=== PATIENT | male | born 1945 | race Caucasian/White ===

== ENCOUNTER 2023-11-07 18:37 | Observation (INO) | payer MEDICARE, SELFPAY ==
[2023-11-07] VITALS (14 sets, daily range): BP systolic 94–148; BP diastolic 72–85; PULSE 64; O2SAT 98; BMI 24.5; BMI 24.1
--- NOTE | 2023-11-07 10:01 | EDRN ---
Eriberto VALENTIN in w/ pt at this time.
--- NOTE | 2023-11-07 10:14 | ED.GENMED ---
History of Present Illness
<Sharyn Cordova PA-C - Last Filed: 11/07/23 17:48>
General
Chief Complaint: Fall
Source: patient and family
Time Seen by Provider: 11/07/23 09:55
History of Present Illness
History of Present Illness:
77yoM with a history of hypertension and hyperlipidemia presenting with his daughter for evaluation of a fall. Patient does not remember the fall but it occurred sometime last night. The patient believes he was sleep walking when he fell. The fall
was unwitnessed by family. Daughter states he accidentally took 2 pills of zolpidem last night instead of his usual 1. Patient woke up this morning in his bed with R periorbital ecchymosis. He also c/o R scapular and flank pain.
Patient is from [place] and his house was recently condemned. He moved in with his daughter about 1.5 weeks ago and is currently staying in her downstairs bedroom. Patient's daughter is a night court magistrate nurse. He has fallen 2x since moving in with his
daughter. Daughter is requesting case management consult for placement. He has no documented history of dementia although daughter has noticed some memory issues.
Phy Exam
<Sharyn Cordova PA-C - Last Filed: 11/07/23 17:48>
General Physical Exam
General Presentation: well appearing
General age: appears stated age
General Skin: warm and dry
General Habitus: elderly
General Mental: alert
ENT Exam
ENT Exam: other (R periorbital ecchymosis and tenderness present. No step-offs noted. Approx 3cm curved laceration underneath R eyebrow. PERRL. EOMs intact. Conjunctiva clear. )
Eye Exam
Eye Exam: PERRL, EOMI and conjunctiva normal
Cardiovascular Exam
Cardiovascular Exam: regular rate/rhythm and no edema
Pulmonary Exam
Pulmonary Exam: lungs clear, no respiratory distress, no crackles, no wheezing and other (Bilateral breath sounds)
Gastrointestinal Exam
Gastrointestinal Exam: non tender, soft and non distended
[place] Coma Scale
Eye Opening: Spontaneous
Verbal Response: Oriented
Motor Response: Obeys Commands
GCS Total Score: 15
Musculoskeletal Exam
Musculoskeletal Exam: other (+Tenderness in R upper back/scapular area. Small abrasions noted. No C/T/L spine tenderness. ROM of R shoulder normal. )
Skin Exam
Skin Exam: normal color and warm/dry
<Obie Brown MD - Last Filed: 11/07/23 16:14>
Jaleel Coma Scale
GCS Total Score: 15
Course
<Sharyn Cordova PA-C - Last Filed: 11/07/23 17:48>
Orders/Labs/Results
Orders:
Orders
11/07/23 10:12
Electrocardiogram (*1) Urgent
Reason for Study: Other
Other Reason for Exam: Unwitnessed fall
CT Cervical Spine W/o Iv Contr Urgent
Comment:
Reason For Exam: Unwitnessed fall
CT Chest/abd/pel W Iv Cont Urgent
Comment:
Reason For Exam: Unwitnessed fall, R upper back/flank pain
CT Facial Bones W/o Iv Contras Urgent
Comment:
Reason For Exam: R periorbital ecchymosis, fall
CT Head W/o Iv Contrast Urgent
Comment:
Reason For Exam: Unwitnessed fall
EKG- Treatment ONCE
Tetanus/Diphth/Acelpertussis [Adacel] 0.5 ml IM .ONCE ONE
11/07/23 10:29
Complete Blood Count/With Diff Urgent
Comprehensive Metabolic Panel Urgent
PTT Urgent
Prothrombin Time Urgent
Total CK [Creatine Phosphokinase] Urgent
Troponin I Urgent
11/07/23 12:46
Case Management Consult ONCE
Case Management Consult: Discharge Planning
11/07/23 13:03
Pt Eval And Treat Urgent
Activity Level: Out of Bed- Ad Bhumika
11/07/23 14:03
Ketorolac [Toradol] 15 mg IV NOW STA
11/07/23 16:07
Ketorolac [Toradol] 15 mg .ROUTE .STK-MED ONE
Abnormal Lab Results
11/07/23
10:29
WBC 12.9 H 10^3/uL
(4.8-10.8)
Abs Immat Gran (auto) 0.1 H 10^3/uL
(0-0.05)
Absolute Neuts (auto) 10.8 H 10^3/uL
(1.4-6.5)
Absolute Lymphs (auto) 1.0 L 10^3/uL
(1.2-3.4)
Absolute Monos (auto) 1.0 H 10^3/uL
(0.1-0.6)
Neutrophils % 83.6 H %
(42.2-75.2)
Lymphocytes % 8.0 L %
(20.5-51.1)
BUN 21 H mg/dl
(9-20)
11/07/23 10:29
11/07/23 10:29
Vital Signs
Initial and Last Documented VS:
Initial Vital Signs
Temp Pulse Resp BP Pulse Ox
97.8 F 65 16 142/85 98
11/07/23 08:48 11/07/23 08:48 11/07/23 08:48 11/07/23 08:48 11/07/23 08:48
Last Documented Vital Signs
Temp Pulse Resp BP Pulse Ox
97.8 F 71 17 103/76 95
11/07/23 08:48 11/07/23 17:15 11/07/23 17:15 11/07/23 17:00 11/07/23 17:15
<Obie Brown MD - Last Filed: 11/07/23 16:14>
Orders/Labs/Results
Orders:
Orders
11/07/23 10:12
Electrocardiogram (*1) Urgent
Reason for Study: Other
Other Reason for Exam: Unwitnessed fall
CT Cervical Spine W/o Iv Contr Urgent
Comment:
Reason For Exam: Unwitnessed fall
CT Chest/abd/pel W Iv Cont Urgent
Comment:
Reason For Exam: Unwitnessed fall, R upper back/flank pain
CT Facial Bones W/o Iv Contras Urgent
Comment:
Reason For Exam: R periorbital ecchymosis, fall
CT Head W/o Iv Contrast Urgent
Comment:
Reason For Exam: Unwitnessed fall
EKG- Treatment ONCE
Tetanus/Diphth/Acelpertussis [Adacel] 0.5 ml IM .ONCE ONE
11/07/23 10:29
Complete Blood Count/With Diff Urgent
Comprehensive Metabolic Panel Urgent
PTT Urgent
Prothrombin Time Urgent
Total CK [Creatine Phosphokinase] Urgent
Troponin I Urgent
11/07/23 12:46
Case Management Consult ONCE
Case Management Consult: Discharge Planning
11/07/23 13:03
Pt Eval And Treat Urgent
Activity Level: Out of Bed- Ad Bhumika
11/07/23 14:03
Ketorolac [Toradol] 15 mg IV NOW STA
11/07/23 16:07
Ketorolac [Toradol] 15 mg .ROUTE .STK-MED ONE
Abnormal Lab Results
11/07/23
10:29
WBC 12.9 H 10^3/uL
(4.8-10.8)
Abs Immat Gran (auto) 0.1 H 10^3/uL
(0-0.05)
Absolute Neuts (auto) 10.8 H 10^3/uL
(1.4-6.5)
Absolute Lymphs (auto) 1.0 L 10^3/uL
(1.2-3.4)
Absolute Monos (auto) 1.0 H 10^3/uL
(0.1-0.6)
Neutrophils % 83.6 H %
(42.2-75.2)
Lymphocytes % 8.0 L %
(20.5-51.1)
BUN 21 H mg/dl
(9-20)
11/07/23 10:29
11/07/23 10:29
Vital Signs
Initial and Last Documented VS:
Initial Vital Signs
Temp Pulse Resp BP Pulse Ox
97.8 F 65 16 142/85 98
11/07/23 08:48 11/07/23 08:48 11/07/23 08:48 11/07/23 08:48 11/07/23 08:48
Last Documented Vital Signs
Temp Pulse Resp BP Pulse Ox
97.8 F 71 17 103/76 95
11/07/23 08:48 11/07/23 17:15 11/07/23 17:15 11/07/23 17:00 11/07/23 17:15
Procedures
<Sharyn Cordova PA-C - Last Filed: 11/07/23 17:48>
Laceration Closure
Right Eye:
Status of Wound: clean
Size of Wound in cm: 3
Description of Wound Edges: sharp
Preparation: cleaned with saline
Anesthesia: 1% Lidocaine with epi
Wound exploration: explored to base- no FB
Type of Closure: single layer closure and interrupted sutures
Skin Closure Material: 5-0 nylon
Number of sutures: 5
<Sharyn Cordova PA-C - Last Filed: 11/07/23 17:48>
MDM/Problems Addressed
Differential Diagnosis Includes:
77yoM here after an unwitnessed fall last night. Woke up with R periorbital ecchymosis and R upper back pain. Hx of memory issues and recently moved in with daughter. Daughter also would like a case management consult. He is afebrile and
hemodynamically stable. He is awake, alert, with a GCS of 15. Differential diagnosis includes but is not limited to: mechanical fall, syncope, intracranial hemorrhage, fracture, failure to thrive
Initial ED plan: Check cardiac labs, CK, EKG, and stuart scan to evaluate for traumatic injuries. Update Tdap. Repair eyebrow laceration.
<Sharyn Cordova PA-C - Last Filed: 11/07/23 17:48>
*EKG
Interpreted by ED Provider?: Yes
EKG Intrepretation Date: 11/07/23
Heart Rate: 56
Rate: normal
Rhythm: sinus
Cascade: normal axis
Interval: normal interval
QRS Pattern: normal QRS
Ischemia: no ischemia
*Critical Care Note
Total Time (30-74mins, 75-104mins- exclusive of procedures): Not Applicable
<Sharyn Cordova PA-C - Last Filed: 11/07/23 17:48>
Update Note
Update Note:
Imaging reveals 3 mildly displaced rib fractures. No hemo or pneumothorax. No other injury seen on imaging. Eyebrow laceration repaired as above. Attempted to admit patient to hospital service due to multiple rib fractures in the setting of age
and probable dementia. Hospitalist initially was refusing to admit patient. Case management consulted for placement. Patient unable to be placed in a short-term rehab today. He was ultimately admitted for further management.
ED Attending Note
<Sharyn Cordova PA-C - Last Filed: 11/07/23 17:48>
-
Portions of this chart may have been created with voice recognition software.� Occasional wrong word or��sound alike� substitutions may have occurred due to the inherent limitations of voice recognition software.
<Obie Brown MD - Last Filed: 11/07/23 16:14>
ED Attending Note
Patient seen and examined by attending physician: Yes
ED Attending Note:
I have seen and evaluated the patient with a [id number] encounter. I have spoken to the advance practicer provider and involved in the medical history, the physical exam, medical decision making.
Evaluation and management service: agree unless noted differently below.
Results interpretation: agree unless noted differently below.
Focused HPI: 77-year-old male with past medical history of hypertension, dementia presents to the emergency room accompanied by his son-in-law for evaluation of right back/shoulder pain after an apparent fall. Patient has poor recall due to mild
dementia. He is currently living at home with his daughter and son-in-law�son-in-law states that patient has ambulatory issues and that they have stairs in the house and so patient has been living in the living room to avoid need for stairs.
Apparently this morning patient was found to have bruising and dried blood on the face and was complaining of right shoulder blade pain. Unclear exactly when the fall occurred but apparently appeared normal last night. He is not on any blood
thinners. He denies any headache or neck pain at present. Denies any abdominal pain. He denies any pain in his extremities. Unsure of last tetanus.
Physical exam: Awake and alert. He has right periorbital edema and ecchymosis; he has laceration and above the right orbit near the eyebrow. Extraocular moods are intact, pupils equal round and reactive to light bilaterally. He has no sternal
tenderness; he has posterior rib tenderness just medial to the scapula on the right. He has no midline thoracic or lumbar tenderness. He has no cervical spine tenderness. He has a soft abdomen which is nontender to deep palpation. He has no
signs of trauma to the upper and lower extremities and allows for full passive range of motion without discomfort.
Medical Decision Makin-year-old male presents after a fall last night�main injuries to the right forehead and right mid back/scapular region. Will update tetanus. Check labs including a CBC and a CMP. Check CPK. Check an EKG. Will send for
CT head, facial bones, cervical spine, chest/abdomen/pelvis. Will treat pain. Repair laceration. Reassess after the above.
Labs reviewed: CBC shows marginal leukocytosis, no anemia. CMP no clinically significant abnormalities. CPK normal. CT of the head, face, cervical spine show no acute posttraumatic injuries. CT of the chest/abdomen/pelvis shows mildly displaced
fractures of the right third, fourth, and fifth ribs. Reassessment pain at rest controlled but with movement and inspiration patient is having significant pain. On incentive spirometry testing patient had values of 800/600/600--notably patient had
to interrupt inspiration twice during testing due to pain. Fortunately no other serious injuries aside from rib fractures. I have concerns about his current living situation�family wishes for placement in a higher level of care and I think this is
certainly necessary. Furthermore I have medical concerns given his age, frailty, poor values on incentive spirometry�poor prognostic indicators and certainly with multiple displaced rib fractures there is higher morbidity and mortality. I do think
that admission to the hospital is indicated for analgesia and pulmonary hygiene/incentive spirometry as well as monitoring of respiratory status.
I had a long discussion with the admitting hospitalist expressed concerns about morbidity and mortality in this patient. Expressed my assessment that patient requires admission to the hospital. Expressed my understanding that standard of care for
multiple displaced rib fractures in a patient with above findings is admission to the hospital. After this discussion the hospitalist still does not feel that admission to the hospital is indicated and is refusing admission. Instead he requested
that rn case manager hospice attempt to place patient in jail from the emergency room. Only if unable to place in jail will admit to the hospital. Will continue to monitor the emergency room for now.
Discharge Plan
Departure
Patient Disposition: Admit
Date of Disposition: 11/07/23
Time of Disposition: 17:04
Presentation/result/management discussed w/ accepting MD/DO: Hospitalist
Discharge Problem:
Multiple closed fractures of ribs of right side, Laceration of right eyebrow, Frequent falls
Prescriptions:
No Action
No Current Medications
0
Referrals:
PRIVATE,PHYSICIAN [Family Provider] -
Interventions
Interventions:
*Risk Screen - Suicide Last Done: 11/07/23 08:48
*General Assessment Last Done: 11/07/23 08:48
*Neglect/Abuse Screening Last Done: 11/07/23 08:48
ED- Fall Risk Assessment Last Done: 11/07/23 11:40
*ED COVID-19 Vaccine History Last Done: 11/07/23 10:16
ED-Musculoskeletal Assessment Last Done: 11/07/23 10:43
ED- Neurological Assessment Last Done: 11/07/23 10:16
ED-Skin Assessment Last Done: 11/07/23 10:43
Discharge Date and Time
Print Language: SYRIAC
[2023-11-07 10:40] LABS: % Basophils 0.3 % (0-2); % Eosinophils 0.2 % (0-6); % Immature Granulocytes 0.5 % (0-0.5); % Monocytes 7.4 % (1.7-9.3); % Neutrophils 83.6 % (42.2-75.2); Absolute Immature Granulocytes 0.1 10^3/uL (0-0.05); Absolute Neutrophils 10.8 10^3/uL (1.4-6.5); Hematocrit 43.3 % (39.0-52.0); Hemoglobin 14.5 g/dL (13.0-18.0); Mean Corp Hgb Conc. 33.5 g/dL (33.0-37.0); Mean Corpuscular Hgb 30.8 pg (27.0-31.0); Mean Corpuscular Volume 91.9 fL (80.0-94.0); Mean Platelet Volume 8.5 fL (7.4-10.4); Nucleated Red Blood Cells % 0 % (-); Platelet Count 319 10^3/uL (130-400); Red Blood Cell Count 4.71 10^6/uL (4.70-6.10); Red Cell Dist. Width 12.3 % (11.5-14.5); White Blood Cell Count 12.9 10^3/uL (4.8-10.8)
[2023-11-07 10:50] LABS: INR 1.02; PT 13.2 Sec (11.4-14.6)
[2023-11-07 10:51] LABS: ALT (SGPT) 18 U/L (0-50); AST (SGOT) 20 U/L (17-59); Albumin 3.7 g/dl (3.5-5.0); Alkaline Phosphatase 70 U/L (38-126); Blood Urea Nitrogen 21 mg/dl (9-20); Calcium 9.1 mg/dl (8.4-10.2); Carbon Dioxide 29 mmol/L (22-30); Chloride 102 mmol/L (98-107); Creatine Phosphokinase 65 U/L (55-170); Estimated Creatinine Clearance 73 ml/min; Glucose 98 mg/dl (70-99); Potassium 4.5 mmol/L (3.5-5.1); Sodium 136 mmol/L (135-145); Total Bilirubin 0.4 mg/dl (0.2-1.3); Total Protein 6.6 g/dl (6.3-8.2); eGFR > 60.00
[2023-11-07] MEDS: ADACEL 0.5 ML IM (10:51)
[2023-11-07 11:02] LABS: Troponin I < 0.012 ng/ml
--- NOTE | 2023-11-07 12:13 | EDRN ---
Pt remains in CT at this time.
--- NOTE | 2023-11-07 13:00 | EDRN ---
ED PCT washed wounds on face extensively w/ soap and water, rinsed areas w/ saline, and dressed areas w/ double antibiotic ointment.
--- NOTE | 2023-11-07 13:10 | CM ---
Cm was updated that patient will be admitted/placed in OBS. CM will discuss discharge planning with family.
--- NOTE | 2023-11-07 13:15 | EDRN ---
Eriberto Cordova PA in to see ptReal
--- NOTE | 2023-11-07 13:15 | EDRN ---
Yecenia from case management is presently in room w/ pt at this time.
--- NOTE | 2023-11-07 13:36 | EDRN ---
Dr. Brown in room w/ pt at this time.
--- NOTE | 2023-11-07 13:56 | EDRN ---
Pt was given IS w/ instructions and good return demo by Dr. Brown.
--- NOTE | 2023-11-07 14:21 | CM ---
Addendum entered by Yecenia Chatman RN 11/07/23 17:07:
Plan to place patient in OBS while authorization is pending.
Addendum entered by Yecenia Chatman RN 11/07/23 15:39:
Patient's family is agreeable to [facility] in [place]. Update admission coordinator.
CM initiated insurance authorization through [facility]
Pending authorization is [id number].
Son in Law Tavares is contact for further updates:
[phone]
Addendum entered by Yecenia Chatman RN 11/07/23 14:40:
CM sent referral to [facility].
Addendum entered by Yecenia Chatman RN 11/07/23 14:26:
CM sent referrals to [facility], [facility] and [facility].
Original Note:
CM spoke with patient's son in law who is in agreement with SNF. CM will send referrals. Pending PT notes and acceptance.
--- NOTE | 2023-11-07 14:22 | EDRN ---
Yecenia case reviewer was in to speak w/ pt and family at this time. She said she is going to attempt SNF placement and if not able pt will have to be admitted pending SNF placement.
--- NOTE | 2023-11-07 14:45 | EDRN ---
Pt was evaluated by Julissa from PT who said pt is unsafe to be alone at home by himself as needs assist of 1 to ambulate and needs also an assistive device. Pt was also deemed as confused not remembering what surgeries he had had on his ankles. Pt
has had prior injuries and surgeries on both his ankles per Julissa. Pt' R ankle causes pt to ambulate on lateral portion of his foot not using sole of his foot. Pt's L ankle is fixed from prior surgery and therefore has not ROM.
[2023-11-07] MEDS: TORADOL 15 MG IV (16:09)
--- NOTE | 2023-11-07 16:15 | EDRN ---
Pt ate 100% of his boxed lunch at this time. Pt doing his IS now as well.
--- NOTE | 2023-11-07 17:05 | EDRN ---
Yecenia Laser Printing Operator in ED unable to obtain SNF placement for pt at this time. Pt will be admitted. Yecenia notified Eriberto VALENTIN and will call pt's son who left.
--- NOTE | 2023-11-07 17:16 | PHANOTE ---
med rec karolyn(11/07/23)- Despite having multiple prescriptions, patient states he has not taken any of his pills for around a month. He has prescriptions for lisinopril-HCTZ 20-12.5mg Q48H, Ambien 10mg HSPRN, Lexapro 5mg QD, and Donepezil 10mg QPM.
--- NOTE | 2023-11-07 18:00 | EDRN ---
Dr. Vogel in to see pt at this time.
--- NOTE | 2023-11-07 18:03 | HPS.HSE ---
Family Physician
-
Family Physician: PHYSICIAN PRIVATE
Chief Complaint
-
fall
History of Present Illness
77-year-old male past medical history of hypertension, hyperlipidemia presenting with his daughter for evaluation of a fall. Patient does not remember the fall occurred sometime last night and was unwitnessed. Daughter states he accidentally took
2 pills of zolpidem last night instead of 1. Patient woke up this morning in his bed with right periorbital ecchymosis and right scapular/flank pain. He denies any pain at this time.
Patient is from [place] and his house was recently condemned. He moved in with his daughter 1 and a 1/2 weeks ago. He has fallen twice since moving in with daughter. Daughter requesting case management consult for placement. Patient has no
history of dementia although daughters noticed some memory issues.
Medical History
Past Medical History
Past Medical History: Reports Other (hypertension, hyperlipidemia)
Past Surgical History: Reports None
Social History
Tobacco: Non-smoker
Alcohol: None
Drug: None
Family History
Family History: Not pertinent
Allergies / Home Medications
Allergies reflects when Allergies were last updated in [facility].
Home Medications with original date entered in [facility]
Allergy/Medication List:
Allergies
Allergy/AdvReac Type Severity Reaction Status Date / Time
No Known Allergies Allergy Unverified 11/07/23 08:45
Home Medications
No Meds [No Current Medications] 11/07/23
Review of Systems
-
History Source: Patient
A 12 point ROS was completed and negative except as noted: Yes
Constitutional: Reports No Symptoms
EENT: Reports No Symptoms
Respiratory: Reports No Symptoms
Cardiac: Reports No Symptoms
Abdomen/GI: Reports No Symptoms
: Reports No Symptoms
Musculoskeletal: Reports No Symptoms
Skin: Reports No Symptoms
Neurological: Reports No Symptoms
Endocrine: Reports No Symptoms
Hematologic/Lymphatic: Reports No Symptoms
Psych: Reports No Symptoms
Physical Exam
Vital Signs
Vital Signs
Temp Pulse Resp BP Pulse Ox
97.8 F 71 17 103/76 95
11/07/23 08:48 11/07/23 17:15 11/07/23 17:15 11/07/23 17:00 11/07/23 17:15
Physical Exam
General: Well Developed, Well Nourished and No Apparent Distress
HEENT: NormoCephalic, Moist mucous membranes and Atraumatic
Respiratory: Clear
Cardiac: S1/S2 and Regular Rhythm; No Murmur or Rub
GI: Soft, Non Tender, Non Distended and Normal Bowel Sounds; No Organomegaly
Rectal: Deferred by Provider
Musculoskeletal: No Clubbing, No Cyanosis and No Edema
Skin: No Rash
Neuro: Nonfocal/grossly intact
Laboratory Results
-
11/07/23 10:29
11/07/23 10:29
Laboratory Results
PT 13.2 Sec (11.4-14.6) 11/07/23 10:29
INR 1.02 11/07/23 10:29
APTT 30.0 Sec (23.4-35.0) 11/07/23 10:29
Total Bilirubin 0.4 mg/dl (0.2-1.3) 11/07/23 10:29
AST 20 U/L (17-59) 11/07/23 10:29
ALT 18 U/L (0-50) 11/07/23 10:29
Alkaline Phosphatase 70 U/L (38-126) 11/07/23 10:29
Troponin I < 0.012 ng/ml 11/07/23 10:29
Data Reviewed
-
Lab Data: Labs Reviewed by me
Old Records: Reviewed
Impression/Plan
-
IMPRESSION:
PLAN:
# Fall secondary to increased zolpidem resulting in periorbital ecchymosis
-CT head shows moderate right periorbital soft tissue edema
-CT facial bones negative
-CT C-spine without acute abnormalities
-Case management found SNF bed but insurance authorization pending
# Fall resulting in mildly displaced fractures of right lateral third, fourth and fifth ribs
-Tylenol, lidocaine patch
Likely mild dementia/cognitive impairment
BPH
Hypertension
Hyperlipidemia
DNR/DNI
DVT prophylaxis�SCDs
Regular diet
--- NOTE | 2023-11-07 18:40 | WOUNDNOTE ---
WOUND/SKIN CARE NOTE: Pt identified by name and .
Sutured wound in R eyebrow
Bruising around R eye
R cheek abrasion
--- NOTE | 2023-11-07 18:42 | EDRN ---
Pt administered apple juice at his request at this time.
[2023-11-08 07:00] VITALS: BP 147/86
[2023-11-08 08:11] LABS: % Basophils 0.2 % (0-2); % Eosinophils 0.3 % (0-6); % Immature Granulocytes 0.3 % (0-0.5); % Monocytes 8.6 % (1.7-9.3); % Neutrophils 77.6 % (42.2-75.2); Absolute Lymphocytes 1.2 10^3/uL (1.2-3.4); Absolute Monocytes 0.8 10^3/uL (0.1-0.6); Absolute Neutrophils 7.1 10^3/uL (1.4-6.5); Hematocrit 41.9 % (39.0-52.0); Hemoglobin 14.2 g/dL (13.0-18.0); Mean Corp Hgb Conc. 33.9 g/dL (33.0-37.0); Mean Corpuscular Hgb 31.6 pg (27.0-31.0); Mean Corpuscular Volume 93.1 fL (80.0-94.0); Mean Platelet Volume 8.6 fL (7.4-10.4); Nucleated Red Blood Cells % 0 % (-); Platelet Count 257 10^3/uL (130-400); Red Cell Dist. Width 12.5 % (11.5-14.5); White Blood Cell Count 9.2 10^3/uL (4.8-10.8)
[2023-11-08 08:29] LABS: ALT (SGPT) 15 U/L (0-50); AST (SGOT) 18 U/L (17-59); Albumin 3.4 g/dl (3.5-5.0); Alkaline Phosphatase 69 U/L (38-126); Blood Urea Nitrogen 20 mg/dl (9-20); Calcium 8.9 mg/dl (8.4-10.2); Carbon Dioxide 28 mmol/L (22-30); Chloride 101 mmol/L (98-107); Estimated Creatinine Clearance 82 ml/min; Glucose 84 mg/dl (70-99); Potassium 4.1 mmol/L (3.5-5.1); Sodium 135 mmol/L (135-145); Total Bilirubin 0.5 mg/dl (0.2-1.3); Total Protein 6.2 g/dl (6.3-8.2); eGFR > 60.00
--- NOTE | 2023-11-08 09:02 | CM ---
terminal manager spoke with Nakita Weaver at [facility] [phone] and Auth is still pending. Auth [id number]
Plan; Skilled placement at [facility] in [place] when stable.
--- NOTE | 2023-11-08 10:30 | W.PN.HOSP.TC ---
Today's Communication/Plan
-
For placement
Assessment / Plan
Assessment / Plan
NAD, resting comfortably in bed
Scleral anicteric, right eye bruised
Moist mucous membranes
No JVD
CTA bilateral
Normal S1-S2 no murmurs
Soft nontender nondistended bowel sounds active
No peripheral pitting edema
Moves extremities spontaneously
AAOx3
Multiple rib fracture, Unilateral right-sided mildly displaced. Without evidence of pneumothorax nor pneumonia. Preference to pulmonary hygiene with incentive spirometer albuterol early mobilization
-Provided with Tylenol
-If becomes hypoxic check stat CXR to rule out PTX
Fall, mechanical, multiple in 2 weeks. Daughter cannot care for him at home. Recently house condemned in [place]. Therefore will require placement. PT OT evaluating
-PT recommends SNF placement
Anticipated Discharge: Within 24 hours
Subjective/Interval History
-
Date of Service: November 08, 2023
Objective Data
-
Labs:
Laboratory Results
11/08/23
06:41
WBC 9.2
Hgb 14.2
Hct 41.9
Plt Count 257
Sodium 135
Potassium 4.1
Chloride 101
Carbon Dioxide 28
BUN 20
Creatinine 0.8
Glucose 84
Calcium 8.9
Total Bilirubin 0.5
AST 18
ALT 15
Alkaline Phosphatase 69
Vital Signs:
Vital Signs
Temp Pulse Resp BP Pulse Ox
97.5 F 60 18 147/86 99
11/08/23 07:00 11/08/23 07:00 11/08/23 07:00 11/08/23 07:00 11/08/23 08:00
I&O
11/07/23 11/08/23 11/09/23
06:59 06:59 06:59
Intake Total 960 / 960
Output Total 1125 / 1125
Balance -165 / -165
CT Rads
Cervical,m,, spine CT
IMPRESSION:
No acute intracranial abnormality.
No acute abnormalities within the cervical spine. Multilevel moderate to severe cervical spondylosis.
Moderate RIGHT periorbital soft tissue edema. No underlying facial bone fracture.
2 cm nodule within the right thyroid gland.
CT Chest AP
IMPRESSION:
1. Mildly displaced fractures of the RIGHT lateral third, fourth, and fifth ribs.
2. Mild subsegmental atelectasis within both lower lobes.
3. 2 cm nodule within the right thyroid lobe. Consider further evaluation with nonemergent thyroid ultrasound.
4. Significant prostamegaly.
5. Additional findings above.
CT Face
IMPRESSION:
No acute intracranial abnormality.
No acute abnormalities within the cervical spine. Multilevel moderate to severe cervical spondylosis.
Moderate RIGHT periorbital soft tissue edema. No underlying facial bone fracture.
2 cm nodule within the right thyroid gland.
CT Head
[2023-11-08] MEDS: TYLENOL 650 MG PO ×2 (13:58→19:18)
[2023-11-08 15:00] VITALS: BP 108/72
[2023-11-08] MEDS: MELATONIN 3 MG PO (22:16)
[2023-11-08 23:07] VITALS: BP 129/72
[2023-11-09 07:53] VITALS: BP 114/72
[2023-11-09] MEDS: TYLENOL 650 MG PO ×2 (08:35→20:15)
--- NOTE | 2023-11-09 11:11 | W.PN.HOSP.TC ---
Today's Communication/Plan
-
.
Assessment / Plan
Assessment / Plan
NAD, resting comfortably in bed
Scleral anicteric, right eye bruised
Moist mucous membranes
No JVD
CTA bilateral
Normal S1-S2 no murmurs
Soft nontender nondistended bowel sounds active
No peripheral pitting edema
Moves extremities spontaneously
AAOx3
Multiple rib fracture, Unilateral right-sided mildly displaced. Without evidence of pneumothorax nor pneumonia. Preference to pulmonary hygiene with incentive spirometer albuterol early mobilization
-Provided with Tylenol
-If becomes hypoxic check stat CXR to rule out PTX
Fall, mechanical, multiple in 2 weeks. Daughter cannot care for him at home. Recently house condemned in [place]. Therefore will require placement. PT OT evaluating
-PT recommends SNF placement
CM working on SNF placement to [facility] in [place]. Auth pending
Anticipated Discharge: Within 24 hours
Subjective/Interval History
-
Date of Service: November 09, 2023
seen and examiend
no new compaints
no acute overnight events
Objective Data
-
Vital Signs:
Vital Signs
Temp Pulse Resp BP Pulse Ox
97.6 F 69 18 114/72 96
11/09/23 07:53 11/09/23 07:53 11/09/23 07:53 11/09/23 07:53 11/09/23 08:19
I&O
11/08/23 11/09/23 11/10/23
06:59 06:59 06:59
Intake Total 960 / 960 2049
Output Total 1125 / 1125 1500 / 1500 300 / 300
Balance -165 / -165 550 / 550 -300 / -300
[2023-11-09 15:21] VITALS: BP 115/74
--- NOTE | 2023-11-09 19:06 | PTCARENOTE ---
Patient became irritable and uncooperative midday asking to get a bus ride to [place] and to call his daughter. Attempt to talk with pt and redirect -order lunch and called his daughter. Afterwards pt did settle and eat lunch, daughter arrived to visit
and pt without further complaints. pt sits withhead set listening to tv
[2023-11-09] MEDS: MELATONIN 5 MG PO (22:54)
[2023-11-09 23:22] VITALS: BP 130/73
[2023-11-10] MEDS: TYLENOL 650 MG PO ×4 (00:40→21:00)
--- NOTE | 2023-11-10 06:07 | W.PN.HOSP.TC ---
Addendum entered and electronically signed by Barney Pedro MD 11/10/23 13:24:
Reported Hx HTN
Normotensive throughout hospitalization with need for antihypertensive
Original Note:
Today's Communication/Plan
-
discharge
Assessment / Plan
Assessment / Plan
Physical Exam
GEN: NAD, resting comfortably in bed
HEENT:Scleral anicteric, right eye bruised Moist mucous membranes, Hard of hearing
Neck: No JVD
Resp: CTA bilateral
Cardio: Normal S1-S2 no murmurs
GI: Soft nontender nondistended bowel sounds active
Ext: No peripheral pitting edema
Neuro: Moves extremities spontaneouslyAAOx3 mentation appears slow
Psych: calm
77M HTN HLD suspected mild dementia/cognitive impairment family hx notable for Alzheimer dementia both parents per daughter, recently moved from [place] (home condemned) here for ambulatory dysfunction multiple falls resulting in right rib
fractures, family unable to take care of patient at home.
CT chest/abd/pelvis appreciated Multiple rib fracture, Unilateral right-sided mildly displaced 3rd 4th and 5th. Without evidence of pneumothorax nor pneumonia. Preference to pulmonary hygiene with incentive spirometer albuterol early mobilization
-Pain controlled with Tylenol
-stable respiratory status on room air
CT also noted
-2 cm nodule within the right lower lobe. No supraclavicular or axillary lymphadenopathy. (repeat CT chest in 1 month follow up with primary care provider recommended)
-Mild subsegmental atelectasis within both lower lobes.
-2 cm nodule within the right thyroid lobe. (follow up TFT in 1 week and Thyroid US in 1 month with primary care provider recommended)
-Significant Prostamegaly. (likely BPH no significant urinary retention noted this Hospitalization) urology follow up recommended
-Severe degenerative disc disease at L4-5 and L5-S1.
CT Head Facial Bones appreciated
-No acute intracranial abnormality.
-No acute abnormalities within the cervical spine. Multilevel moderate to severe cervical spondylosis.
-Moderate RIGHT periorbital soft tissue edema. No underlying facial bone fracture.
-2 cm nodule within the right thyroid gland.
Fall, mechanical, multiple in 2 weeks. Daughter cannot care for him at home. Recently house condemned in [place]. Therefore will require placement. PT OT evaluating
-PT recommends SNF placement
Concern for mild cognitive impairment/mild dementia
-patient unclear on family hx but daughter reports both of patient's parents had Alzheimer
-outpt follow up with neurology and neuropsychiatry for further work up evaluation recommended.
CM appreciated Insurance Auth received and SNF rehab has bed available
Medically stable for discharge SNF rehab with outpatient follow up recommendations
discussed with patient and patient's daughter Antony
Total Time Preparing Discharge ___50____ minutes including examination of the patient, summary of the hospital stay, instructions for continuing care to all relevant caregivers; and preparation of discharge records, prescriptions, and referral
forms if necessary.
Anticipated Discharge: Today
Subjective/Interval History
-
Date of Service: November 10, 2023
Seen and examined at bedside in no acute distress sitting up comfortably in bed. AOx3 reports overall improvement in symptoms though right sided rib pain remains likely d/t fractures. Stable respiratory status on room air no shortness or breath.
Objective Data
-
Vital Signs:
Vital Signs
Temp Pulse Resp BP Pulse Ox
97.7 F 73 18 130/73 99
11/09/23 23:22 11/09/23 23:22 11/09/23 23:22 11/09/23 23:22 11/09/23 23:22
I&O
11/08/23 11/09/23 11/10/23
06:59 06:59 06:59
Intake Total 960 / 960 2050 / 2049 340 / 340
Output Total 1125 / 1125 1500 / 1500 1550 / 1550
Balance -165 / -165 550 / 550 -1210 / -1210
[2023-11-10 07:35] VITALS: BP 126/70
--- NOTE | 2023-11-10 08:38 | CM ---
[facility], [place] [phone], left VM on ED phone on 11/09/23.
Approved skilled rehab
Reference# [id number]
Approved 11/09/23 with [facility] 11/12/23
supply chain coordinator not assigned yet and will contact facility.
Updates to fax# [phone].
--- NOTE | 2023-11-10 12:45 | CM ---
Addendum entered by Suzy Robles 11/10/23 16:20:
Discharge cancelled today to [facility]. CM to follow up for tomorrow discharge.
IA completed.
[facility]
Addendum entered by Suzy Robles 11/10/23 13:30:
Patient signed observation form.
Original Note:
Patient for discharge.
Daughter called & will transport patient to [facility].
Monica from [facility] notified of transport approximately 2:00-2:30pm.
IMM signed by patient & placed in chart. Copy given.
PLAN: Discharge to [facility].
Daughter to transport to SNF. Approx 2:00-2:30pm
REPORT #: [phone]
FAX #: [phone]
--- NOTE | 2023-11-10 13:23 | W.DCSUMMARY ---
Discharge Summary
Discharge Data
Date of Admission: 11/07/23
Date of Discharge: 11/10/23
-
Pending Results: No
Discharge Plan
-
Patient Disposition: Jail/SNF
Discharge Diagnosis/Procedures: Right sided rib fractures lateral 3rd 4th and 5th
Prostatomegaly
Possible Mild Cognitive Impairment/Dementia
Ambulatory Dysfunction
Pulmonary Nodule 2cm Right Lower Lobe
Thyroid Nodule 2 cm
Reported History Hyperlipidemia
Cervical and Lumbar Degenerative Disc Disease
Condition: Fair
Diet: Regular
Activity: As tolerated and With Walker
Driving Restrictions: Not until seen by your Dr
Bathing Restrictions: None
Blood Work: Please repeat CBC BMP and obtain Thyroid Function Test and Lipid panel with Primary care provider in 1 week of discharge.
Others Tests: Obtain Thyroid US and CT chest with primary care provider in one month of discharge (to follow up on Thyroid nodule, Pulmonary Nodule, and Rt sided Rib Fractures).
Other Services: PT, OT and ST
Activity Restrictions/Additional Instructions:
Please follow up with primary care provider in 1 week of discharge. In 2-4 weeks of discharge follow up with Urology, Neurology, and Neuropsychiatry.
Referrals:
Alton Merrill MD [Active] - in two to four weeks
Avila Rodriguez, PSY [Specified Professional Personl] - in two to four weeks
Izaiah Xiong MD [Active] - in two to four weeks
PRIVATE,PHYSICIAN [Family Provider] -
Prescriptions:
New
acetaminophen 325 mg Tablet
650 mg PO Q4HPRN PRN (Reason: mild pain/RICKS/temp> 100.4F) Qty: 60 0RF
Discharge Orders:
Discharge Patient (As Directed); Ordered 11/10/23
Ordered By: Barney Pedro
Discharge Date and Time
Print Language: MOROCCAN
[2023-11-10 13:42] VITALS: BP 142/71
--- NOTE | 2023-11-10 14:45 | PTCARENOTE ---
11/09- Patient was unable to stand from wheelchair to get into his car for discharge d/t reported 9/10 pain upon repositioning. This was S/P Tylenol administration ~1hour ago. Pain is described as stabbing pain in R-upper back where rib fx are, as
well as stabbing pain in L-sacral spine. Patient denies pain at rest but states pain is worst upon transition of position from Lay to Sit and Sit to Stand. He states he 'tore my ass which shot up to my neck last night.' Notified Physician.
Discharge was revoked. Warm blanket applied. Continue to monitor.
--- NOTE | 2023-11-10 15:07 | W.PN.UPDATE ---
Update Note
Progress Note Update
Discharge canceled in severe lower back pain suspect musculoskeletal possible cramp localizable left lower side just above buttocks.
Requiring significant 3 person assistance to transfer patient from wheelchair back to bed (significant change from baseline).
No weakness or numbness.
-lidocaine patch, low dose baclofen
-fall precautions
-repeat PT eval
-possible discharge tomorrow if pain ambulatory status improves.
-discussed with patient, patient's daughter Antony, nurse, and case mgmt
[2023-11-10 15:50] VITALS: BP 142/71; PULSE 70
[2023-11-10] MEDS: LIORESAL 2.5 MG PO ×2 (16:14→21:20)
[2023-11-10] MEDS: LIDOCAINE 4% PATCH 1 PATCH TOPICAL (16:17)
[2023-11-10 17:44] LABS: Hematocrit 41.6 % (39.0-52.0); Hemoglobin 14.3 g/dL (13.0-18.0); Mean Corp Hgb Conc. 34.4 g/dL (33.0-37.0); Mean Corpuscular Hgb 31.7 pg (27.0-31.0); Mean Corpuscular Volume 92.2 fL (80.0-94.0); Mean Platelet Volume 8.6 fL (7.4-10.4); Platelet Count 249 10^3/uL (130-400); Red Blood Cell Count 4.51 10^6/uL (4.70-6.10); Red Cell Dist. Width 12.6 % (11.5-14.5); White Blood Cell Count 15.9 10^3/uL (4.8-10.8)
[2023-11-10 17:58] LABS: Blood Urea Nitrogen 25 mg/dl (9-20); Calcium 8.8 mg/dl (8.4-10.2); Carbon Dioxide 25 mmol/L (22-30); Chloride 104 mmol/L (98-107); Creatine Phosphokinase 32 U/L (55-170); Estimated Creatinine Clearance 82 ml/min; Glucose 112 mg/dl (70-99); Magnesium 2.1 mg/dl (1.6-2.3); Phosphorus 4.1 mg/dl (2.5-4.5); Potassium 4.4 mmol/L (3.5-5.1); Sodium 136 mmol/L (135-145); eGFR > 60.00
[2023-11-10 20:33] LABS: Hepatitis C Antibody Negative (Negative)
[2023-11-10] MEDS: MELATONIN 3 MG PO (21:21)
[2023-11-10 23:11] VITALS: BP 150/81
[2023-11-11] MEDS: TYLENOL 650 MG PO ×2 (01:09→04:55)
[2023-11-11 07:00] VITALS: BP 146/76
--- NOTE | 2023-11-11 07:12 | W.PN.HOSP.TC ---
Today's Communication/Plan
-
discharge
Assessment / Plan
Assessment / Plan
Physical Exam
GEN: NAD, resting comfortably in bed
HEENT:Scleral anicteric, right eye bruised Moist mucous membranes, Hard of hearing
Neck: No JVD
Resp: CTA bilateral
Cardio: Normal S1-S2 no murmurs
GI: Soft nontender nondistended bowel sounds active
Ext: No peripheral pitting edema
Neuro: Moves extremities spontaneouslyAAOx3 mentation appears slow
Psych: calm
77M HTN HLD suspected mild dementia/cognitive impairment family hx notable for Alzheimer dementia both parents per daughter, recently moved from [place] (home condemned) here for ambulatory dysfunction multiple falls resulting in right rib
fractures, family unable to take care of patient at home.
CT chest/abd/pelvis appreciated Multiple rib fracture, Unilateral right-sided mildly displaced 3rd 4th and 5th. Without evidence of pneumothorax nor pneumonia. Preference to pulmonary hygiene with incentive spirometer albuterol early mobilization
-Pain controlled with Tylenol
-stable respiratory status on room air
CT also noted
-2 cm nodule within the right lower lobe. No supraclavicular or axillary lymphadenopathy. (repeat CT chest in 1 month follow up with primary care provider recommended)
-Mild subsegmental atelectasis within both lower lobes.
-2 cm nodule within the right thyroid lobe. (follow up TFT in 1 week and Thyroid US in 1 month with primary care provider recommended)
-Significant Prostamegaly. (likely BPH no significant urinary retention noted this Hospitalization) urology follow up recommended
-Severe degenerative disc disease at L4-5 and L5-S1.
CT Head Facial Bones appreciated
-No acute intracranial abnormality.
-No acute abnormalities within the cervical spine. Multilevel moderate to severe cervical spondylosis.
-Moderate RIGHT periorbital soft tissue edema. No underlying facial bone fracture.
-2 cm nodule within the right thyroid gland.
Right Shoulder pain restricted range of motion
Right Shoulder XR appreciated
-no acute fractures malalignment
-moderate osteoarthritic changes
Fall, mechanical, multiple in 2 weeks. Daughter cannot care for him at home. Recently house condemned in [place].
-PT recommends SNF placement
Concern for mild cognitive impairment/mild dementia
-patient unclear on family hx but daughter reports both of patient's parents had Alzheimer
-outpt follow up with neurology and neuropsychiatry for further work up evaluation recommended.
Discharge briefly held d/t severe left lower back pain likely musculoskeletal requiring 3 person assist for transfer from wheelchair to bed
-since improved with lidocaine patch and low dose scheduled baclofen. Able to stand with one assist
CM appreciated Insurance Auth received and SNF rehab has bed available
Medically stable for discharge SNF rehab with outpatient follow up recommendations
discussed with patient and patient's daughter Antony
Total Time Preparing Discharge ___50____ minutes including examination of the patient, summary of the hospital stay, instructions for continuing care to all relevant caregivers; and preparation of discharge records, prescriptions, and referral
forms if necessary.
Anticipated Discharge: Today
Subjective/Interval History
-
Date of Service: November 11, 2023
Pain significantly improved since lidocaine patch and baclofen start. Able to stand with min 1 assist (compared to 3 person assist yesterday). Continues to report Right shoulder pain. Overall reports feeling well.
Objective Data
-
Vital Signs:
Vital Signs
Temp Pulse Resp BP Pulse Ox
97.6 F 71 18 150/81 97
11/10/23 23:11 11/10/23 23:11 11/10/23 23:11 11/10/23 23:11 11/10/23 23:11
I&O
11/10/23 11/11/23 11/12/23
06:59 06:59 06:59
Intake Total 340 / 340 1140 / 1140
Output Total 1550 / 1550 1150 / 1150
Balance -1210 / -1210 -10 / -10
[2023-11-11] MEDS: LIORESAL 2.5 MG PO (09:14)
[2023-11-11] MEDS: LIDOCAINE 4% PATCH 1 PATCH TOPICAL ×2 (09:15→13:02)
--- NOTE | 2023-11-11 12:04 | CM ---
Addendum entered by Suzy Robles 11/11/23 15:09:
Transport scheduled today for 4:30pm
Addendum entered by Suzy Robles 11/11/23 14:49:
patient for shoulder x-ray today.
Original Note:
Patient seen at bedside with Dr. Pedro.
Left message for daughter Antony.
Patient to be discharged today to [facility].
transportation via ambulance - Time TBD
PLAN: Discharge to [facility].
Daughter to transport to SNF. Approx 2:00-2:30pm
REPORT #: [phone]
FAX #: [phone]
[2023-11-11 15:00] VITALS: BP 100/83
--- NOTE | 2023-11-11 15:31 | W.DCSUMMARY ---
Discharge Summary
Discharge Data
Date of Admission: 11/07/23
Date of Discharge: 11/11/23
-
Pending Results: No
Discharge Plan
-
Patient Disposition: Correction/SNF
Discharge Diagnosis/Procedures: Right sided rib fractures lateral 3rd 4th and 5th
Prostatomegaly
Possible Mild Cognitive Impairment/Dementia
Ambulatory Dysfunction
Pulmonary Nodule 2cm Right Lower Lobe
Thyroid Nodule 2 cm
Reported History Hyperlipidemia
Cervical and Lumbar Degenerative Disc Disease
Arthritis
Right Shoulder Pain
Condition: Fair
Diet: Regular
Activity: As tolerated and With Walker
Driving Restrictions: Not until seen by your Dr
Bathing Restrictions: None
Blood Work: Please repeat CBC BMP and obtain Thyroid Function Test and Lipid panel with Primary care provider in 1 week of discharge.
Others Tests: Obtain Thyroid US and CT chest with primary care provider in one month of discharge (to follow up on Thyroid nodule, Pulmonary Nodule, and Rt sided Rib Fractures).
Other Services: PT, OT and ST
Activity Restrictions/Additional Instructions:
Please follow up with primary care provider in 1 week of discharge. In 2-4 weeks of discharge follow up with Orthopedic, Urology, Neurology, and Neuropsychiatry.
acetaminophen 325 mg tablet 650 mg (2 x 325 mg) PO every 4 hours as needed for pain
baclofen 5 mg tablet 2.5 mg (1/2 x 5 mg) PO for muscle cramp/strain/back pain scheduled three times a day for 1 week then as needed three times a day then on.
lidocaine 4 % topical patch 1 patch topical DAILY right shoulder pain
lidocaine 4 % topical patch 1 patch topical DAILY left lower back pain
melatonin 3 mg tablet PO bedtime as needed for sleep
Please take medications as prescribed/recommended and follow up with primary care provider and/or other healthcare provider involved in your care for refills and/or further adjustment as necessary.
Referrals:
Brayden Sosa MD [Active] - in two to four weeks
Alton Merrill MD [Active] - in two to four weeks
Avila Rodriguez PSY [Specified Professional Personl] - in two to four weeks
Izaiah Xiong MD [Active] - in two to four weeks
PRIVATE,PHYSICIAN [Family Provider] -
Prescriptions:
New
acetaminophen 325 mg Tablet
650 mg PO Q4HPRN PRN (Reason: mild pain/RICKS/temp> 100.4F) Qty: 60 0RF
lidocaine 4 % Adhesive Patch,Medicated
1 patch topical DAILY Qty: 15 0RF
Rx Instructions:
right shoulder
lidocaine 4 % Adhesive Patch,Medicated
1 patch topical DAILY Qty: 15 0RF
Rx Instructions:
Left lower back area
baclofen 5 mg Tablet
2.5 mg PO TID 14 Days Qty: 21 0RF
Rx Instructions:
convert to as needed after the 1st week
melatonin 3 mg Tablet
3 mg PO HS PRN (Reason: insomnia) Qty: 14 0RF
Discharge Orders:
Discharge Patient (As Directed); Ordered 11/11/23
Ordered By: Barney Pedro
Discharge Date and Time
Print Language: FRENCH
== END 2023-11-11 16:36 ==
LOC: 4 WEST ACU 18:37
PROVIDERS: Physician Assistant; ADMITTING PHYSICIAN Hospitalist; ATTENDING PHYSICIAN Internal Medicine; EMERGENCY PHYSICIAN Emergency Medicine
DX: S22.41XA Multiple fractures of ribs, right side, initial encounter for closed fracture (principal); S01.111A Laceration without foreign body of right eyelid and periocular area, initial encounter; M25.511 Pain in right shoulder; E78.5 Hyperlipidemia, unspecified; I10 Essential (primary) hypertension; N40.0 Benign prostatic hyperplasia without lower urinary tract symptoms; F51.3 Sleepwalking [somnambulism]; G47.9 Sleep disorder, unspecified; R10.9 Unspecified abdominal pain; R29.6 Repeated falls; R60.0 Localized edema; M47.812 Spondylosis without myelopathy or radiculopathy, cervical region; H91.90 Unspecified hearing loss, unspecified ear; M50.30 Other cervical disc degeneration, unspecified cervical region; R91.1 Solitary pulmonary nodule; E04.1 Nontoxic single thyroid nodule; J98.11 Atelectasis; M19.011 Primary osteoarthritis, right shoulder; M51.36 Other intervertebral disc degeneration, lumbar region; M51.37 Other intervertebral disc degeneration, lumbosacral region; M54.50 Low back pain, unspecified; W01.0XXA Fall on same level from slipping, tripping and stumbling without subsequent striking against object, initial encounter; Y93.01 Activity, walking, marching and hiking; Y92.003 Bedroom of unspecified non-institutional (private) residence as the place of occurrence of the external cause; Z66 Do not resuscitate; Z75.1 Person awaiting admission to adequate facility elsewhere
CPT/HCPCS: 12002; 70450; 70486; 71260; 72125; 73030; 74177; 80048; 80053; 82550; 83735; 84100; 84484; 85025; 85027; 85610; 85730; 86803; 90715; 93005; 96361; 96374; 97116; 97530; 99285; G0378; Q9967